=== PATIENT | male | born 1960 | race Caucasian/White ===

== ENCOUNTER 2018-09-21 08:52 | Day surgery (SDC) | payer OTHER ==
[~2018-09-21 08:52] MED LIST: SOD CHLORIDE 0.9% 1,000 ML IV
[2018-09-21] MEDS: DICLOFENAC 0.1% 2.5 ML OPH OPER (10:03)
[2018-09-21] MEDS: TROPICAMIDE 1% 15 ML OPH OPER (10:03)
[2018-09-21] MEDS: CYCLOPENTOLATE/PHENYLEPH 2 ML OPH OPER (10:04)
[2018-09-21] MEDS: MOXIFLOXACIN 0.5% 3 ML OPH OPER (10:04)
[2018-09-21 10:10] LABS: ADD MAN DIFF? NO
[2018-09-21 10:17] LABS: WHITE BLOOD COUNT 4.7 10^3/ul (4.8-10.8)
[2018-09-21 10:17] LABS: ABNORMAL IP MESSAGE 1; BASOPHILS % 0.6 % (0.0-2.0); EOSINOPHILS # 0.2 10^3/ul (0.0-0.5); EOSINOPHILS % 4.1 % (0.0-7.0); HEMATOCRIT 28.7 % (42.0-52.0); HEMOGLOBIN 8.9 g/dl (14.0-18.0); LYMPHOCYTES # 0.8 10^3/ul (0.8-2.9); LYMPHOCYTES % 17.1 % (15.0-51.0); MEAN CORPUSCULAR HEMOGLOBIN 18.8 pg (29.0-33.0); MEAN CORPUSCULAR VOLUME 60.7 fl (82.0-101.0); MONOCYTE # 0.2 10^3/ul (0.3-0.9); MONOCYTES % 5.1 % (0.0-11.0); NEUTROPHIL # 3.4 10^3/ul (1.6-7.5); NEUTROPHILS % 72.7 % (39.0-77.0); PLATELET COUNT 207 10^3/UL (140-415); POSITIVE DIFF @See below; RED BLOOD COUNT 4.73 10^6/ul (4.70-6.10); RED CELL DISTRIBUTION WIDTH 15.4 % (11.5-14.5)
[2018-09-21 10:18] LABS: HOLD TRANSMISSIONS 1
[2018-09-21] MEDS: INSULIN REGULAR, HUMAN 100 UNIT/1 ML 3ML VIAL SC ×2 (10:26→11:14)
[2018-09-21 10:37] LABS: INR 1.04; PROTIME 13.7 Sec (11.9-14.9); PT RATIO 1.1
[2018-09-21 10:38] LABS: PARTIAL THROMBOPLASTIN TIME 27.4 Sec (23.0-35.0)
[2018-09-21] MEDS ORDERED: LABETALOL HCL 20MG INJ IV (11:30)
[2018-09-21] MEDS ORDERED: OXYCODONE/ACETAMINOPHEN (5/325) TAB PO (11:30)
[2018-09-21] MEDS ORDERED: EPHEDrine SULFATE 50 MG/5 ML SYG IV (11:30)
[2018-09-21] MEDS ORDERED: hydrALAzine 20 MG INJ IV (11:30)
[2018-09-21] MEDS ORDERED: METOCLOPRAMIDE 10 MG INJ IV (11:30)
[2018-09-21] MEDS ORDERED: FENTAnyl 50 MCG/ML VIAL IV (11:30)
[2018-09-21] MEDS ORDERED: ONDANSETRON 4 MG INJ IV (11:30)
[2018-09-21] MEDS ORDERED: morphine (1 MG/ML) 10ML SYRINGE IV (11:30)
[2018-09-21] MEDS: DEXAMETHASONE 4 MG/ML 1 ML INJ (12:15)
[2018-09-21] MEDS ORDERED: NA HYALURONATE/CHONDROITIN 0.5 ML SYG (12:15)
[2018-09-21] MEDS: CARBACHOL 0.01% 1.5 ML OPH INJ (12:15)
[2018-09-21] MEDS: CEFAZOLIN 1 GM INJ (12:15)
[2018-09-21] MEDS ORDERED: LIDOCAINE 4% (MPF) 5 ML INJ (12:15)
== END 2018-09-21 14:14 | disposition home or self-care (01) ==
LOC: SDS 08:52
DX: H25.12 Age-related nuclear cataract, left eye (principal); I10 Essential (primary) hypertension; E11.9 Type 2 diabetes mellitus without complications; E78.5 Hyperlipidemia, unspecified
CPT/HCPCS: 66984; 71045; 82962; 85025; 85610; 85730

== ENCOUNTER 2019-02-15 06:26 | Day surgery (SDC) | payer OTHER ==
[2019-02-15] MEDS: MOXIFLOXACIN 0.5% 3 ML OPH OPER ×3 (07:37→07:50)
[2019-02-15] MEDS: TROPICAMIDE 1% 15 ML OPH OPER ×3 (07:38→07:50)
[2019-02-15] MEDS: DICLOFENAC 0.1% 2.5 ML OPH OPER ×3 (07:38→07:51)
[2019-02-15] MEDS: CYCLOPENTOLATE/PHENYLEPH 2 ML OPH OPER ×3 (07:40→07:51)
[2019-02-15] MEDS: SOD CHLORIDE 0.9% 1,000 ML IV (07:51)
[2019-02-15] MEDS ORDERED: DEXAMETHASONE 4 MG/ML 1 ML INJ (08:04)
[2019-02-15] MEDS ORDERED: LIDOCAINE 4% (MPF) 5 ML INJ (08:04)
[2019-02-15] MEDS ORDERED: CARBACHOL 0.01% 1.5 ML OPH INJ (08:04)
[2019-02-15] MEDS ORDERED: EPINEPHrine 1 MG INJ ×2 (08:04)
[2019-02-15] MEDS ORDERED: GENTAMICIN 80 MG INJ (08:04)
[2019-02-15] MEDS ORDERED: ACETAMINOPHEN 500 MG TAB PO (09:30)
[2019-02-15] MEDS ORDERED: ONDANSETRON 4 MG INJ IV (09:30)
[2019-02-15] MEDS ORDERED: FENTAnyl 50 MCG/ML VIAL IV (09:30)
[2019-02-15] MEDS ORDERED: DIPHENHYDRAMINE 50 MG INJ IV (09:30)
[2019-02-15] MEDS ORDERED: LABETALOL HCL 20MG INJ IV (09:30)
[2019-02-15] MEDS ORDERED: OXYCODONE/ACETAMINOPHEN (5/325) TAB PO (09:30)
[2019-02-15] MEDS ORDERED: ALBUTEROL 0.083% (NEB) 2.5 MG/3 ML AMP HHN (09:30)
[2019-02-15] MEDS ORDERED: hydrALAzine 20 MG INJ IV (09:30)
[2019-02-15] MEDS ORDERED: ACETAMINOPHEN 325 MG TAB PO (09:30)
[2019-02-15] MEDS: CARBACHOL 0.01% 1.5 ML OPH INJ IO (09:50)
[2019-02-15] MEDS: LIDOCAINE 4% (MPF) 5 ML INJ INJ (09:50)
[2019-02-15] MEDS: CEFAZOLIN 1 GM INJ INJ (10:01)
[2019-02-15] MEDS ORDERED: LIDOCAINE 2% (SDV) 5 ML INJ (10:01)
[2019-02-15] MEDS ORDERED: PROPOFOL 20 ML (10:01)
[2019-02-15] MEDS: DEXAMETHASONE 4 MG/ML 1 ML INJ INJ (10:02)
== END 2019-02-15 19:00 | disposition home or self-care (01) ==
LOC: SDS 06:26
DX: H25.11 Age-related nuclear cataract, right eye (principal); E11.9 Type 2 diabetes mellitus without complications; Z79.4 Long term (current) use of insulin
CPT/HCPCS: 66984; 82962